=== PATIENT | female | born 1970 | race Caucasian/White ===

== ENCOUNTER 2022-07-06 10:16 | Emergency (ER) | payer BC ==
[~2022-07-06] VITALS: Ht 162.6 cm; Wt 77.1 kg
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
[2022-07-06] MEDS ORDERED: IBUPROFEN 600 MG TABLET PO ONE (11:00)
[2022-07-06] MEDS ORDERED: IBUPROFEN 600 MG TABLET ONE (11:04)
--- NOTE | 2022-07-06 11:14 | NUR ---
Patient discharged to home in stable condition. Written and verbal after care instructions given. Patient verbalizes understanding of instruction.
[2022-07-06 11:15] VITALS: BP 123/72
== END 2022-07-06 11:15 | disposition home or self-care (01) ==
LOC: ER 11:03
DX: R07.9 Chest pain, unspecified (principal); V89.2XXA Person injured in unspecified motor-vehicle accident, traffic, initial encounter; Y93.89 Activity, other specified; Y92.410 Unspecified street and highway as the place of occurrence of the external cause; Y99.8 Other external cause status
CPT/HCPCS: 71045-TC